=== PATIENT | female | born 1990 | race Caucasian/White ===

== ENCOUNTER 2016-11-22 08:09 | Day surgery (SDC) | payer OTHER ==
[~2016-11-22] VITALS: Ht 165.1 cm; Wt 73.5 kg
[2016-11-22] MEDS ORDERED: SODIUM CHLORID 0.9% 500 ML INJ 500 ML IV SCH (09:00)
[2016-11-22] MEDS ORDERED: METOPROLOL TARTRATE 25 MG TAB PO PRN (09:00)
[2016-11-22] MEDS ORDERED: LORazepam 1 MG TAB SL SCH (09:00)
[2016-11-22] MEDS ORDERED: SODIUM CHLORID 0.9% 500 ML IV SCH (09:00)
[2016-11-22] MEDS ORDERED: INSULIN HUMAN REGULAR 1,000 UNITS/10 ML VIAL SQ PRN (09:00)
[2016-11-22] MEDS ORDERED: LACTATED RINGER'S 1000 ML IV SCH (09:00)
[2016-11-22 09:07] LABS: AUTOMATED NEUTROPHIL # 8.4 TH/MM3 (1.8-7.7); BASOPHIL % 0.3 % (0.0-2.0); EOSINOPHIL # 0.1 TH/MM3 (0-0.4); EOSINOPHIL % 0.6 % (0.0-4.0); HEMATOCRIT 35.4 % (35.0-46.0); HEMO FLAGS DIFF FINAL; LYMPH % 20.7 % (9.0-44.0); LYMPHOCYTE # 2.5 TH/MM3 (1.0-4.8); MEAN CELL VOLUME 80.2 FL (80.0-100.0); MEAN CORPUSCULAR HGB CONC 32.4 % (32.0-36.0); NEUT % 69.4 % (16.0-70.0); PLATELET COUNT 288 TH/MM3 (150-450); RED BLOOD COUNT 4.42 MIL/MM3 (4.00-5.30); RED CELL DISTRIBUTION WIDTH 16.1 % (11.6-17.2); WHITE BLOOD COUNT 12.1 TH/MM3 (4.0-11.0)
[2016-11-22 09:18] LABS: PROTHROMBIN TIME - PATIENT 11.1 SEC (9.8-11.6)
[2016-11-22] MEDS ORDERED: METO25TA6 PO (09:19)
[2016-11-22 09:20] VITALS: BP 121/74; PULSE 84; RESP 18; TEMP 98.5; O2SAT 99
[2016-11-22 09:48] LABS: ANION GAP 6 MEQ/L (5-15); BICARBONATE 27.8 MEQ/L (21.0-32.0); BLOOD UREA NITROGEN 12 MG/DL (7-18); CHLORIDE 105 MEQ/L (98-107); GLOMERULAR FILTRATION RATE 87 ML/MIN (>89); POTASSIUM 3.5 MEQ/L (3.5-5.1); SODIUM (NA) 139 MEQ/L (136-145)
[2016-11-22 09:52] LABS: BETA HCG QUANT LESS THAN 1 MIU/ML (0-5)
[2016-11-22] MEDS ORDERED: ISOPROTERENOL HCL 1 MG/5 ML AMP ONE (11:41)
[2016-11-22] MEDS ORDERED: MIDAZOLAM HCL 2 MG/2 ML VIAL ONE (11:51)
[2016-11-22] MEDS ORDERED: LIDOCAINE HCL 1% 50 ML VIAL INFIL PRN (13:45)
[2016-11-22] MEDS ORDERED: ONDANSETRON HCL 4 MG/2 ML VIAL IV PRN (13:45)
[2016-11-22] MEDS ORDERED: ATROPINE SULFATE 1 MG/ML VIAL IV PRN (13:45)
[2016-11-22] MEDS ORDERED: SODIUM CHLOR 0.9% 250 ML INJ 250 ML IV PRN (13:45)
[2016-11-22] MEDS ORDERED: oxyCODONE/ACETAMINOPHEN 5 MG/325 MG TAB PO PRN ×2 (13:45)
[2016-11-22] MEDS ORDERED: LORazepam 2 MG/ML VIAL IV PRN (13:45)
[2016-11-22] MEDS ORDERED: BACITRACIN OINT 0.9 GM PKT TOP ONE (13:45)
[2016-11-22] MEDS ORDERED: METOCLOPRAMIDE HCL 10 MG/2 ML VIAL IV PRN (13:45)
[2016-11-22] MEDS ORDERED: PILL SPLITTER OTHER PRN (14:15)
[2016-11-22] MEDS ORDERED: PROPOFOL 200 MG/20 ML AMP IV ONE (15:11)
[2016-11-22] MEDS ORDERED: DO NOT ADM ANY ANTICOAGULANT DRUGS XX PRN (15:30)
--- NOTE | 2016-11-23 07:12 | EKG ---
Date Performed: 11/22/2016 Time Performed: 10:06:40 PTAGE: 26 years EKG: Sinus rhythm Inferior T wave changes may be normal for age Nonspecific ST-T wave changes Abnormal ECG NO PREVIOUS TRACING DOCTOR: Daniel Madrid Interpretating Date/Time 11/23/2016 07:12:15
[2016-11-23] MEDS ORDERED: METOPROLOL SUCCINATE 25 MG EXTENDED RELEASE TAB PO SCH (09:00)
--- NOTE | 2016-11-23 09:28 | MA ---
cc: KAYLIE BROTHERS M.D. DATE 11/22/2016 PROCEDURE Electrophysiology study, CS cannulation, repeat electrophysiology study on Isuprel infusion. INDICATION Ms. Farr is a 26-year-old female with recurrent episodes of supraventricular tachyarrhythmia. She had previous electrophysiology study two years ago that was negative. She has a loop recorder. Episode of heart rate at around 180 beats per minute observed. Decision for electrophysiology study was taken. The risks, the nature and the benefit of the procedure were clearly stated to her. The risks include pneumothorax, cardiac perforation, stroke, need for open heart surgery and even . The patient understood and agreed to proceed. PROCEDURE After written informed consent was obtained, the patient was brought to the EP lab where she was prepped and draped in the usual sterile fashion. Conscious sedation was initiated and maintained throughout the procedure by anesthesiologist. Once sedation verified, the right inguinal area was anesthetized with 2% Xylocaine. Using modified Seldinger technique, the right femoral vein was cannulated on three occasions and three guidewires were advanced. Over the wire one 5, one 6 and an 8 Vincentian Hemaquet were advanced. Then the left femoral vein was cannulated on three occasions and three guidewires were advanced. Over the wire three 5-Vincentian Hemaquets were advanced. Then under fluoroscopic guidance through the 5 and 6-Vincentian Hemaquets, four 5-Vincentian Sheila curved quadripolar electrophysiology catheters were advanced and positioned on the His, upper right atrium, coronary sinus, and right ventricular apex. Basic interval was measured, they were within normal limits. At this point atrial pacing protocol was performed. Atrial pacing protocol consisted of incremental atrial pacing as well as programmed stimulation with 110 cycle length and up to two excess stimuli delivered. Atrial pacing protocol was performed at the coronary sinus as well as the upper right atrium. That was performed at the coronary sinus and also at the distal coronary sinus of the catheter. Then ventricular pacing protocol was performed. There was VA conduction, it was concentric. Ventricular pacing protocol consisted of incremental ventricular pacing as well as programmed stimulation with 110 cycle length and up to three extra stimuli delivered. No tachyarrhythmia was induced. Then Isuprel infusion was initiated. Atrial and ventricular pacing protocol were repeated, again no tachyarrhythmia was induced. Post Isuprel atrial and ventricular pacing protocol was repeated again no tachyarrhythmia was induced. At that point procedure was complete. All catheters were removed. The patient going to be transferred to recovery room. No incident to report. The patient tolerated the procedure. Blood loss minimal. ASSESSMENT 1. Electrocardiogram at baseline. The patient was in sinus. Postprocedure electrocardiogram was unchanged. 2. Basic cycle length was 770 milliseconds. AH was around 70 and HV around 50 milliseconds. 3. Atrial pacing protocol. Wenckebach of the node was around 280 milliseconds. ERP of the node was 600-200 milliseconds. No tachyarrhythmia was induced. 4. Atrial pacing protocol. There was VA conduction. No tachyarrhythmia was induced. CONCLUSION Negative electrophysiology study for supra and ventricular tachyarrhythmia. COMMENT AND RECOMMENDATIONS The patient going to be transferred to the recovery room. Will be observed, when stable can be discharged home. Case extensively discussed with her and her . The patient has supraventricular tachyarrhythmia and loop monitoring. But no tachyarrhythmia induced during the electrophysiology study. Nature of the tachyarrhythmia is unknown, for now observation and medical management. MD DEVAN Hicks/ALEX /2:10 PM /9:18 AM
--- NOTE | 2016-11-23 22:26 | EKG ---
Date Performed: 11/22/2016 Time Performed: 15:48:04 PTAGE: 26 years EKG: Sinus rhythm QRS changes V3/V4 may be due to LVH but cannot rule out anterior infarct Inferior ST-T changes Abnor mal ECG PREVIOUS TRACING : 11/22/2016 10.06 Compared to prior tracing no significant change DOCTOR: Karie Sims Interpretating Date/Time 11/23/2016 22:24:55
== END 2016-11-22 15:22 | disposition home or self-care (01) ==
LOC: HCAT 08:09 → HDIC 08:11 → HCAT 15:22
PROVIDERS: ATTEND Internal Medicine Interventional Cardiology
DX: I47.1 Supraventricular tachycardia (principal); I48.0 Paroxysmal atrial fibrillation; R42 Dizziness and giddiness; R94.31 Abnormal electrocardiogram [ECG] [EKG]; Z95.818 Presence of other cardiac implants and grafts
CPT/HCPCS: 80048; 84702; 85025; 85610; 85730; 86850; 86900; 86901; 93005; 93620; 93623; C1730; C1732; J2250; J3010